=== PATIENT | male | born 1980 | race American Indian/Alaskan Native ===

== ENCOUNTER 2018-11-14 08:28 | Emergency (ER) | payer OTHER ==
--- NOTE | 2018-11-14 08:52 | Emergency Department Report ---
ED CPR HPI - General Chief Complaint: Cardiac Arrest/CPR Stated Complaint: CARDIAC ARREST Time Seen by Provider: 11/14/18 08:37 Source: EMS Mode of arrival: Stretcher Limitations: Other - History of Present Illness Initial Comments: Mr. Zavala is a 38-year-old male with history of seizure according to EMS. He was [place] homeless [place] unresponsive. EMS on arrival discovered Mr. Zavala to be in asystole rhythm. He was intubated with endotracheal tube. He received 5 rounds of epinephrine, 2 doses of naloxone and 1 shock. A systole rhythm converted to ventricular tachycardia and then shocked to asystole. Multiple persons at the scene only had limited information. He reported to be homeless by contacts at the scene. No known family contact. According to previous ED documentation from 2105 encounter, Mr. Zavala has history of schizophrenia, diabetes and hypertension. He was evaluated for seizure. During his previous eating encounter, it was documented that family member was present. MD Complaint: found unresponsive -: minute(s) (10) Place: other (homeless camp) Bystander CPR Performed: No AED Applied by Bystander/Agency Development Manager: No Downtime Before ACLS Arrival (mins): 10 Initial Findings in the Field: unresponsive, no pulse ROSC in the Field: No Associated Injuries: No Treatments Prior to Arrival: intubation, defribrillated shocks # (1), epinephrine mgs #, other (naloxone) - Related Data Home Medications Medication Instructions Recorded Confirmed Last Taken Lurasidone HCl [Latuda] 40 mg PO DAILY 12/17/15 12/17/15 Unknown OLANZapine 10 mg PO QHS 12/17/15 12/17/15 Unknown Propranolol [Inderal] 20 mg PO BID 12/17/15 12/17/15 Unknown metFORMIN [Glucophage] 500 mg PO BID 12/17/15 12/17/15 Unknown Previous Rx's Medication Instructions Recorded Last Taken Type levETIRAcetam [Keppra TAB] 500 mg PO BID #60 tablet 12/17/15 Unknown Rx Allergies Allergy/AdvReac Type Severity Reaction Status Date / Time latex Allergy Severe Anaphylaxis Verified 12/17/15 08:58 ED Review of Systems ROS: Stated complaint: CARDIAC ARREST Other details as noted in HPI Comment: Unobtainable due to pts medical conditions (cardiac arrest) ED Past Medical Hx - Past Medical History Previous Medical History?: Yes Hx Hypertension: Yes Hx Diabetes: Yes - Surgical History Additional Surgical History: not sure pt to lethargic - Family History Family history: other (unable to be obtained) - Social History Smoking Status: Current Every Day Smoker Substance Use Type: Alcohol - Medications Home Medications: Home Medications Medication Instructions Recorded Confirmed Last Taken Type Lurasidone HCl [Latuda] 40 mg PO DAILY 12/17/15 12/17/15 Unknown History OLANZapine 10 mg PO QHS 12/17/15 12/17/15 Unknown History Propranolol [Inderal] 20 mg PO BID 12/17/15 12/17/15 Unknown History levETIRAcetam [Keppra TAB] 500 mg PO BID #60 tablet 12/17/15 Unknown Rx metFORMIN [Glucophage] 500 mg PO BID 12/17/15 12/17/15 Unknown History ED Physical Exam - General Limitations: Other General appearance: other (comatose lifeless) - Head Head exam: Present: atraumatic, normocephalic - Eye Eye exam: Absent: scleral icterus, conjunctival injection, periorbital swelling, periorbital tenderness Pupils: Present: other (fixed dilated) - ENT ENT exam: Present: mucous membranes moist, other (endotracheal tube in place) - Neck Neck exam: Present: normal inspection - Respiratory Respiratory exam: Present: other (coarse equal breath sounds with ventilation) - Cardiovascular Cardiovascular Exam: Present: other (no cardiac sounds on auscultation) - GI/Abdominal GI/Abdominal exam: Present: soft, distended - Extremities Exam Extremities exam: Present: normal inspection - Back Exam Back exam: Present: normal inspection - Neurological Exam Neurological exam: Present: other (lifeless no spontaneous movement) - Psychiatric Psychiatric exam: Present: other (lifeless) - Skin Skin exam: Present: dry, intact, pallor ED Medical Decision Making - Medical Decision Making Mr. Zavala presents in cardiac arrest. Excellent care provided by EMS prior to arrival. Mr. Zavala was unresponsive for 10 minutes prior to EMS arrival without CPR. EMS provided ACLS treatment for 25 minutes. In the ED, ACLS continued with sodium bicarbonate, epinephrine and calcium. Persistent asystole rhythm without pulse. Time of 8:35 I attempted to call phone number listed as a personal contact. No voicemail was available. I also spoke with my colleague listed as previous PCP. Unfortunately, my colleague did not have any affiliation with the patient. Charge nurse informed. She will arrange for case management to locate and contact next of kin. Critical care attestation.: If time is entered above; I have spent that time in minutes in the direct care of this critically ill patient, excluding procedure time. ED Disposition Clinical Impression: Cardiac arrest Disposition: DC-20 Is pt being admited?: No Does the pt Need Aspirin: No Condition: Stable Time of Disposition: 08:35 (Time of )
[2018-11-14] MEDS ORDERED: ADRENALIN ONE (23:00)
[2018-11-14] MEDS ORDERED: NARCAN 2 MG/2 ML ONE (23:00)
[2018-11-14] MEDS ORDERED: CALCIUM CHLORIDE IV ONE (23:00)
== END 2018-11-14 11:15 ==
LOC: ED 08:28
DX: I46.9 Cardiac arrest, cause unspecified (principal); I10 Essential (primary) hypertension; E11.9 Type 2 diabetes mellitus without complications; F17.200 Nicotine dependence, unspecified, uncomplicated; Z91.040 Latex allergy status
CPT/HCPCS: 99285; J0171; J2310